=== PATIENT | male | born 1960 | race Two or more races ===

== ENCOUNTER 2024-10-28 21:42 | Emergency (ER) | payer OTHER ==
[~2024-10-28] VITALS: Ht 162.6 cm; Wt 62.7 kg
[2024-10-28 22:13] VITALS: BP 156/97; PULSE 77; RESP 16; TEMP 98; O2SAT 99
[2024-10-28] MEDS: PERTUSS(ACELL),DIPH,TET/PF 0.5 ML SYRINGE [ADULT] IM. ONE (23:00)
[2024-10-28] MEDS ORDERED: AMOX1TAB15 PO (23:01)
== END 2024-10-28 23:08 | disposition home or self-care (01) ==
LOC: EMS 21:45
DX: S41.132A Puncture wound without foreign body of left upper arm, initial encounter (principal); S40.812A Abrasion of left upper arm, initial encounter; I10 Essential (primary) hypertension; F17.210 Nicotine dependence, cigarettes, uncomplicated; Z72.89 Other problems related to lifestyle; Z98.890 Other specified postprocedural states; W54.0XXA Bitten by dog, initial encounter; Y93.89 Activity, other specified; Y92.89 Other specified places as the place of occurrence of the external cause; Y99.8 Other external cause status
CPT/HCPCS: 90471; 90715; 99283

== ENCOUNTER 2025-03-08 14:51 | Emergency (ER) | payer OTHER ==
[~2025-03-08] VITALS: Ht 162.6 cm; Wt 50.4 kg
[~2025-03-08 14:51] MED LIST: AMOX1TAB15 PO
[2025-03-08 14:53] VITALS: BP 163/93; PULSE 84; RESP 18; TEMP 97.3; O2SAT 98
[2025-03-08] MEDS ORDERED: CEPH-558 PO (17:07)
[2025-03-08] MEDS ORDERED: LOSA-382 PO (17:12)
[2025-03-08] MEDS ORDERED: ASPI-1444 PO (17:12)
[2025-03-08] MEDS ORDERED: AMLO5TAB66 PO (17:12)
[2025-03-08] MEDS ORDERED: ROSU20TA98 PO (17:12)
[2025-03-08] MEDS: BACITRACIN 28 GM OINTMENT TP ONE (17:21)
== END 2025-03-08 17:22 | disposition home or self-care (01) ==
LOC: EMS 14:51
DX: L03.312 Cellulitis of back [any part except buttock and flank] (principal); D17.1 Benign lipomatous neoplasm of skin and subcutaneous tissue of trunk; E78.00 Pure hypercholesterolemia, unspecified; I10 Essential (primary) hypertension; Z79.899 Other long term (current) drug therapy; Z98.890 Other specified postprocedural states
CPT/HCPCS: 99283